=== PATIENT | male | born 1990 | race Caucasian/White ===

== ENCOUNTER 2017-11-10 13:16 | Emergency (ER) | payer BC ==
[~2017-11-10] VITALS: Ht 182.9 cm; Wt 90.7 kg
--- NOTE | ~2017-11-10 | EKG ---
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1990 Requested By: Julee Bobby Order Number: [id number] MD: Charbel Anguiano Measurements Intervals [place] Rate: 101 P: 60 [place]: 134 QRS: 28 QRSD: 90 T: 57 QT: 346 QTc: 449 Interpretive Statements Sinus tachycardia Consider right atrial enlargement ST elev, probable normal early repol pattern No previous ECG available for comparison Electronically Signed On 11-11-2017 8:17:26 CDT by Charbel Anguiano [email or web address] <ELECTRONICALLY SIGNED> By: Charbel Anguiano MD, [facility] 11/11/17 0817 1326 1326 Charbel Anguiano MD, FACC /EPI
--- NOTE | ~2017-11-10 | EKG ---
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
[2017-11-10 13:49] LABS: HEMATOCRIT 44.9 % (42.0-52.0); HEMOGLOBIN 15.7 gm/dL (14.0-18.0); MCH 29.4 pg (26.0-34.0); MCHC 34.9 g/dL (28.0-37.0); MCV 84.3 fL (80.0-100.0); RBC 5.33 mil/uL (4.50-6.00); RDW 12.8 % (10.5-14.5); WBC 9.2 thou/uL (4.0-11.0)
[2017-11-10 13:49] LABS: POC CA IONIZED 4.6 mg/dL (4.5-5.3); POC CREATININE 1.2 mg/dL (0.6-1.3); POC HEMOGLOBIN 15.6 g/dL (14.0-18.0); POC POTASSIUM 4.1 mmol/L (3.5-5.1)
[2017-11-10 14:00] LABS: ANION GAP 13 mmol/L (7-16); BUN 16 mg/dL (7-18); CALCIUM 9.5 mg/dL (8.5-10.1); CHLORIDE 103 mmol/L (98-107); CO2 20 mmol/L (21-32); CREATININE 1.4 mg/dL (0.7-1.3); GLUCOSE 93 mg/dL (74-106); POTASSIUM 4.1 mmol/L (3.5-5.1); SODIUM 136 mmol/L (136-145)
[2017-11-10 14:09] LABS: ALBUMIN 4.5 g/dL (3.4-5.0); LIPASE 102 U/L (73-393); SGOT 33 U/L (15-37); SGPT 31 U/L (30-65); TOTAL BILIRUBIN 0.4 mg/dL (<0.1-1.0); TOTAL PROTEIN 8.3 g/dL (6.4-8.2); TROPONIN-I <0.06 ng/mL (<0.06)
[2017-11-10 15:20] LABS: AMP/METHAMP Negative (Negative); BARBITURATES Negative (Negative); BENZODIAZEPINES Negative (Negative); COCAINE Negative (Negative); METHADONE Negative (Negative); OPIATES Negative (Negative); PCP Negative (Negative)
[2017-11-10 16:15] VITALS: BP 125/77
== END 2017-11-10 16:16 | disposition still patient (30) ==
LOC: ER 13:16
PROVIDERS: Student in an Organized Health Care Education/Training Program
DX: R07.9 Chest pain, unspecified (principal); I10 Essential (primary) hypertension